=== PATIENT | male | born 1980 | race Caucasian/White ===

== ENCOUNTER 2018-05-02 13:39 | Outpatient (CLI) | payer BC ==
--- NOTE | 2018-05-02 15:05 | MRI ---
MRI OF LUMBAR SPINE WITHOUT CONTRAST: INDICATION: Back pain with right leg referral pain suspicious for radiculopathy. TECHNIQUE: Multiplanar, multisequence MR images were obtained of the lumbar spine without IV contrast. FINDINGS: There is a large right paracentral to right foraminal disk extrusion measuring 1.3 x 1.8 x 1 cm in it s greatest mediolateral, craniocaudad, and AP dimensions respectively. This is causing posterior dis placement of the traversing S1 nerve root within the right lateral recess and causing impingement of the exiting right L5 nerve root. This is superimposed on a mild broad-based bulge and facet osteoart hrosis. At L4-5, there is a broad-based bulge with mild facet hypertrophy inducing mild neural foraminal narr owing. At L3-4, there is mild facet joint degenerative change and broad-based bulge but no appreciable centr al canal or neural foraminal narrowing. At L2-3, there is no appreciable central canal or neural foraminal narrowing. At L1-L2, there is no appreciable central canal or neural foraminal narrowing. IMPRESSION: 1. Large right paracentral-right foraminal disk protrusion causing compression of the right L5 and r ight S1 nerve roots as above. 2. Mild multilevel spondylosis of the lumbar spine. POS: [facility]
== END 2018-05-02 13:40 | disposition home or self-care (01) ==
LOC: TBSIIMAG 13:39
PROVIDERS: ATTEND Neurological Surgery
DX: M47.26 Other spondylosis with radiculopathy, lumbar region (principal); M51.16 Intervertebral disc disorders with radiculopathy, lumbar region; M51.17 Intervertebral disc disorders with radiculopathy, lumbosacral region
CPT/HCPCS: 72148